=== PATIENT | female | born 1970 ===

== ENCOUNTER 2019-10-06 09:45 | Inpatient (IN) | payer OTHER ==
[~2019-10-06] VITALS: Ht 165.1 cm; Wt 93.4 kg
[2019-10-06] MEDS ORDERED: FOLIC ACID PO (12:31)
[2019-10-06] MEDS ORDERED: TOPROL XL50 M1 PO (12:31)
[2019-10-06] MEDS ORDERED: ATACAND HCT 161 EACH PO (12:31)
[2019-10-06] MEDS ORDERED: PREVACID PO (12:32)
[2019-10-06] MEDS ORDERED: VITAMIN D PO (12:33)
[2019-10-06] MEDS ORDERED: METHOTREXATE PO (12:36)
[2019-10-06] MEDS ORDERED: HYDROCHLOROTHIAZIDE PO (12:38)
[2019-10-27] MEDS ORDERED: HYDROCHLOROTH12.5 MG PO (08:23)
[2019-10-27] MEDS ORDERED: FOLIC ACID1 MG PO (08:24)
[2019-10-27] MEDS ORDERED: VITAMIN D350 MC3 PO (08:24)
[2019-10-27] MEDS ORDERED: PREVACID30 MG PO (08:25)
[2019-10-27] MEDS ORDERED: METHOTREXATE2.5 MG PO (08:27)
[2019-10-28] MEDS ORDERED: PERCOCET 5-3251 EACH PO (16:08)
[2019-10-28] MEDS ORDERED: DUI500 PO (16:08)
[2019-10-28] MEDS ORDERED: ELIQUIS2.5 MG PO (16:08)
== END 2019-10-28 19:00 | DRG 470 ==
LOC: O/R 10-12 09:45 → SURH 10-12 09:45 → O/R 10-26 07:00 → SURH 10-26 07:00
PROVIDERS: ADMIT Orthopaedic Surgery; ATTEND Orthopaedic Surgery
PROC: 0SRD0J9 Replacement of Left Knee Joint with Synthetic Substitute, Cemented, Open Approach (ICD-10-PCS; principal; 2019-10-26 11:00)
DX: M17.12 Unilateral primary osteoarthritis, left knee (principal); I10 Essential (primary) hypertension; E66.9 Obesity, unspecified

== ENCOUNTER 2020-08-22 07:00 | Inpatient (IN) | payer OTHER ==
[~2020-08-22] VITALS: Ht 167.6 cm; Wt 97.5 kg
[~2020-08-22 07:00] MED LIST: ATACAND HCT 161 EACH PO; DUI500 PO; ELIQUIS2.5 MG PO; FOLIC ACID PO; FOLIC ACID1 MG PO; HYDROCHLOROTH12.5 MG PO; HYDROCHLOROTHIAZIDE PO; METHOTREXATE PO; METHOTREXATE2.5 MG PO; PERCOCET 5-3251 EACH PO; PREVACID PO; PREVACID30 MG PO; TOPROL XL50 M1 PO; VITAMIN D PO; VITAMIN D350 MC3 PO
[2020-08-22] MEDS ORDERED: COZAAR50 MG PO (08:30)
[2020-08-22] MEDS ORDERED: TOPROL XL50 M1 PO (08:30)
[2020-08-22] MEDS ORDERED: HUMIRA40 MG/0.2 SQ (08:32)
[2020-08-22] MEDS ORDERED: OMEPRAZOLE20 MG PO (08:37)
[2020-08-31] MEDS ORDERED: DUI500 PO (12:40)
[2020-08-31] MEDS ORDERED: PERCOCET 5-3251 EACH PO (12:40)
[2020-08-31] MEDS ORDERED: ELIQUIS2.5 MG PO (12:40)
== END 2020-08-31 16:41 | disposition short-term general hospital, planned readmission (82) | DRG 470 ==
LOC: O/R 08-29 05:43 → SURH 08-29 05:43
PROVIDERS: ADMIT Orthopaedic Surgery; ATTEND Orthopaedic Surgery
PROC: 0SNC0ZZ Release Right Knee Joint, Open Approach (ICD-10-PCS; 2020-08-29)
PROC: 3E0F7SF Introduction of Other Gas into Respiratory Tract, Via Natural or Artificial Opening (ICD-10-PCS; 2020-08-29)
PROC: 0SRC0JA Replacement of Right Knee Joint with Synthetic Substitute, Uncemented, Open Approach (ICD-10-PCS; principal; 2020-08-29 13:30)
DX: M17.11 Unilateral primary osteoarthritis, right knee (principal); D62 Acute posthemorrhagic anemia; M22.11 Recurrent subluxation of patella, right knee; I10 Essential (primary) hypertension; E66.9 Obesity, unspecified; Z20.822 Contact with and (suspected) exposure to COVID-19